=== PATIENT | male | born 1945 | race Caucasian/White ===

== ENCOUNTER 2018-12-04 18:06 | Emergency (ER) | payer MEDICARE, BC ==
--- OUTSIDE RECORDS SUMMARY | 2018-12-04 18:12 | XMS REPORT | Continuity of Care Document ---
:1945 External Reference #:[id number] Author Name Enrique Vuong M.D. Address [address] [facility] [address] [place] [address] Care Team Providers Name Role Phone HCP given Primary Care Physician Unavailable Payers Date Identification Numbers Payment Provider Subscriber Effective: 2009 Policy Number: [id number] [facility] Hamzah Munoz PayID: [id number] [address] [place] [address] Policy Number: [id number] Parish Hamzah Munoz PayID: [id number] [address] [place] [address] Problems Active Problems Provider Date Disorder of lipid metabolism Enrique Vuong M.D. Onset: 08/02/2005 Gastroesophageal reflux disease Enrique Vuong M.D. Onset: 10/25/2010 Family History Date Family Member(s) Observation Comments General Obesity 2 sibs Father Heart Disease Father due to NM () - AGE 60 Father Heart disease. Birthdate 1911. due to NM age 60. Mother Obesity Mother due to NM () - AGE 86 Mother Heart Disease Mother Obesity, heart disease. Birthdate [birth year]. due to NM age 86. Number of Children None Number of Siblings Siblings: 3 (2 brothers, 1 sister) First Brother NM in his early 60s Second Brother HIV Onset: (07/2018) First Sister Cancer breast, liver, bone (age 72 Years) (Hamzah is unsure of primary; she is not pursuing any Tx) First Sister Michelle. Birthdate [birth year]. Social History Type Date Description Comments Sex Unknown Marital Status Patient is (2010) General Highest level of education completed is post grad. 1995. 2000. The home is smoke free. Not currently working. Last date worked: 2000. 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 No history of drug abuse.Spends pad[place] in [place] Tobacco Use Reviewed: Never Smoked Cigarettes 11/17/17 Smoking Status Reviewed: Never Smoked Cigarettes 11/17/17 ETOH Use 11/12/2015 Currently consumes 3-4 beers 1-2x/wk alcohol Recreational Drug Use Never Used Drugs Exercise Type/Frequency Exercises sporadically Current Sexual Hx The patient is currently sexually active. Does not currently use any method of control. First intercourse was at age 17. Sexual preference is women. Allergies, Adverse Reactions, Alerts Active Allergies Reaction Severity Comments Date NKDA 11/08/2014 Inactive Allergies Ivermectin 10/27/2012 NKDA 07/31/2003 Medications Active Medications SIG Qnty Indications Ordering Provider Date Fish Oil one po daily Unknown 11/13/2016 B-Complex 1 po daily Unknown 10/28/2013 Calcium/Magnesium/Zinc 1 by mouth Unknown 10/26/2012 every day Tablets Multivitamin 1 po qd 0tabs Unknown 08/01/2005 Tablets History Medications Fluticasone 2 sprays into each 16units J31.0 Yevgeniy, 11/14/2016 - Propionate nostril once daily Jazz Nunez 11/16/2017 50mcg/Act for nasal Suspension congestion and cough Famotidine Take One Tablet By 90tabs K21.Rohit Vuong, 11/12/2015 - 40mg Mouth Every Jazz Nunez 04/11/2018 Tablets Evening (Preferably 10 To 30 Minutes Before Supper) For Acid Reflux (This Replaces Pantoprazol Zostavax administer 1 dose 1units Yevgeniy, 04/21/2014 - Jazz Nunez 04/21/2014 29485Tvj/0.65ML Solution Rec Luxiq Apply Topically as 100units 698.9 Yevgeniy, 02/28/2013 - 0.12% Foam Directed 2 Times A Jazz Nunez 10/30/2013 Day To Scalp Stop After Two Weeks; If It Works Well But Symptoms Return May Restart It Pantoprazole Sodium Take One Tablet By 90tabs K21.9 Yevgeniy, 10/25/2010 - Mouth Every Day as Jazz Nunez 12/25/[address] Navarrete For Acid Reflux And Cough R05 Triamcinolone apply to affected 45gm 704.8 Marianelashyanne, 10/16/2010 - Acetonide areas on chest bid Jazz Nunez 10/20/2012 0.5% Cream prn Cipro 1 po bid as needed 12tabs V65.49 Silshyanne, 05/14/2009 - 500mg Tablets for travellers Jazz Nunez 10/24/2009 diarrhea, for 1-3 days as directed Malarone 1 po qd starting 42tabs V65.49 Silcomohit, 05/14/2009 - 250-100mg 1-2 days before Jazz Nunez 10/24/2009 Tablets arrival into malaria endemic region, continue for 1 week after leaving [facility] 1 po qod for 4 4caps V65.49 Silcomohit, 05/14/2009 - Vaccine doses; keep Jazz Nunez 05/21/[address] refrigerated Pantoprazole Sodium 1 po qd for acid 90tabs 530.81 Yevgeniy, 10/13/2008 - reflux Jazz Nunez 10/23/[address] Diaz.2 Nexium 1 po qd for acid 90caps 530.81 Enrique Vuong, 10/12/2008 - 40mg Capsules reflux Melony.Arash 10/13/2008 DR Block 1 po qd for 150tabs Enrique Vuong, 05/26/2006 - 250mg;100 mg malaria Melony.DArianna 11/22/2006 Tablets prevention, starting 1-2 days before entry into [place]; stop 1 week after leaving malarial region Calcium 2 po qd Unknown 08/01/2005 - 10/26/2012 Magnesium & Zinc 1 qd Unknown 08/01/2005 - 10/26/2012 Injection Glucosamine 2 qd sylvia 07/31/2003 - 10/15/2010 Zithromax Z-Malvin take as directed sylvia 07/31/2003 - 250mg 2003 Tablets #one pack Albuterol Mdi 2 puffs q 4 hrs 1units sylvia 07/31/2003 - prn for SOB 2003 90mcg/Dose Aerosol Saw Deric 3 qd Unknown - 01/10/2009 Vit E 1 PO qd Unknown - 400Iu 08/01/2005 Nasonex 2 sprays to both 1bottle Unknown - 50mcg/Act nostrils once 10/24/2009 Suspension daily Immunizations CPT Code Status Date Vaccine Lot # [id number] Given 04/13/2018 Shingrix Zoster (Shingles) Vaccine (HZV) Recomb,Subnit,Adjuvanted 13253 Given 03/29/2018 Influenza Vaccine Split Virus Preservative Free Im Use 59196 Given 02/10/2018 Shingrix Zoster (Shingles) Vaccine (HZV) [id number] Recomb,Subnit,Adjuvanted 36865 Given 04/17/2015 Prevnar 13 12752 Given 04/17/2015 Flu, Split Virus 3Yrs 36427 Given 04/21/2014 Zostavax 32996 Given 04/20/2014 Flu, Split Virus 3Yrs 67303 Given 04/10/2012 Flu, Split Virus 3Yrs 99334 Given 10/27/2011 Adacel or Boostrix, TDaP [id number] 72441 Given 10/24/2009 Pneumococcal Immunization [id number] 80157 Given 05/24/2009 Flu, Split Virus 3Yrs [id number] 92475 Given 05/14/2009 Hep A, Adult [id number] 73879 Given 10/11/2008 Zostavax [id number] 57228 Given 05/14/2002 Hep A, Adult 83431 Given 03/07/2002 Hep A, Adult 04928 Given 06/22/2001 Hepatitis B Immunization 36133 Given 06/22/2001 Rabies Immunization 47909 Given 06/22/2001 Td Immunization 83925 Given 06/22/2001 Flu, Split Virus 3Yrs Vital Signs Date Vital Result Comment 11/19/2018 9:55am BP Systolic 136 mmHg BP Diastolic 80 mmHg Height 64.50 inches 5'4.50" Weight 173.50 lb BMI (Body Mass Index) 29.3 kg/m2 04/12/2018 12:07pm BP Systolic 138 mmHg BP Diastolic 78 mmHg Weight 178.50 lb 11/17/2017 9:21am BP Systolic 118 mmHg BP Diastolic 78 mmHg BP Systolic Recheck 130 mmHg R arm sitting BP Diastolic Recheck 78 mmHg R arm sitting Heart Rate 58 /min reg Respiratory Rate 12 /min not laboured Height 64.5 inches 5'4.50" Weight 172.00 lb BMI (Body Mass Index) 29.1 kg/m2 11/14/2016 10:06am BP Systolic 132 mmHg BP Diastolic 78 mmHg Height 65.5 inches 5'5.50" with sneakers Weight 173.00 lb with sneakers BMI (Body Mass Index) 28.3 kg/m2 12/26/2015 8:30am BP Systolic 128 mmHg pt machine 130/75 BP Diastolic 66 mmHg pt machine 130/75 BP Systolic Recheck 126 mmHg 127/73 w/ his cuff BP Diastolic Recheck 68 mmHg 127/73 w/ his cuff Weight 168.00 lb 11/12/2015 9:43am BP Systolic 136 mmHg BP Diastolic 80 mmHg BP Systolic Recheck 166 mmHg R arm sitting BP Diastolic Recheck 88 mmHg R arm sitting Heart Rate 56 /min reg Respiratory Rate 12 /min not laboured Height 64.50 inches 5'4.50" Weight 167.00 lb w/shoes BMI (Body Mass Index) 28.2 kg/m2 11/08/2014 8:33am BP Systolic 144 mmHg BP Diastolic 80 mmHg BP Systolic Recheck 166 mmHg R arm sitting BP Diastolic Recheck 94 mmHg R arm sitting Heart Rate 52 /min reg Respiratory Rate 12 /min not laboured Height 64.50 inches 5'4.50" Weight 171.00 lb BMI (Body Mass Index) 28.9 kg/m2 BP Systolic Lying Down Resting Right Arm 168 mmHg BP Diastolic Lying Down Resting Right Arm 94 mmHg 10/31/2013 9:55am BP Systolic 144 mmHg BP Diastolic 88 mmHg BP Systolic Recheck 156 mmHg R arm sitting BP Diastolic Recheck 88 mmHg R arm sitting Height 64.25 inches 5'4.25" Weight 169.00 lb BMI (Body Mass Index) 28.8 kg/m2 02/28/2013 1:54pm BP Systolic 124 mmHg BP Diastolic 70 mmHg Weight 175.00 lb 10/27/2012 8:39am BP Systolic 138 mmHg BP Diastolic 86 mmHg Height 65 inches 5'5" Weight 177.00 lb BMI (Body Mass Index) 29.5 kg/m2 10/27/2011 9:05am BP Systolic 120 mmHg BP Diastolic 76 mmHg Height 64.50 inches 5'4.50" Weight 174.00 lb BMI (Body Mass Index) 29.4 kg/m2 Last Menstrual Period 0 01/08/2011 1:37pm BP Systolic 116 mmHg BP Diastolic 72 mmHg Heart Rate 68 /min reg Respiratory Rate 12 /min not laboured Weight 173.00 lb 11/27/2010 11:44am BP Systolic 118 mmHg BP Diastolic 70 mmHg 10/25/2010 9:05am BP Systolic 120 mmHg BP Diastolic 72 mmHg Heart Rate 68 /min reg Respiratory Rate 12 /min not laboured Height 64.50 inches 5'4.50"pt had height checked last week Weight 169.00 lb BMI (Body Mass Index) 28.6 kg/m2 Last Menstrual Period 0 10/16/2010 11:10am BP Systolic 126 mmHg BP Diastolic 80 mmHg Height 64.50 inches 5'4.50" Weight 173.00 lb BMI (Body Mass Index) 29.2 kg/m2 10/24/2009 2:08pm BP Systolic 122 mmHg BP Diastolic 84 mmHg Heart Rate 64 /min reg Respiratory Rate 16 /min not laboured Height 64.5 inches 5'4.50" Weight 172.50 lb 166.7 home BMI (Body Mass Index) 29.1 kg/m2 05/14/2009 3:16pm BP Systolic 122 mmHg BP Diastolic 80 mmHg Weight 173.00 lb 01/29/2009 9:27am BP Systolic 118 mmHg BP Diastolic 74 mmHg Weight 175.00 lb Last Menstrual Period 0 01/10/2009 9:39am BP Systolic 116 mmHg BP Diastolic 70 mmHg Weight 177.00 lb w/boots 10/11/2008 11:51am BP Systolic 124 mmHg BP Diastolic 78 mmHg Height 65 inches 5'5" Weight 173.00 lb BMI (Body Mass Index) 28.8 kg/m2 08/01/2005 9:52am BP Systolic 120 mmHg BP Diastolic 74 mmHg Height 65.5 inches 5'5.50" Weight 178.00 lb BMI (Body Mass Index) 29.2 kg/m2 2003 3:05pm Weight 178.00 lb 07/31/2003 10:21am BP Systolic 122 mmHg BP Diastolic 70 mmHg Weight 180.00 lb W/Boots Results Test Date Facility Test Result H/L Range Note Lipid Profile 11/12/2015 [facility] Triglycerides 103 mg/dL N 1 (Trig/Chol/HDL) [phone] Cholesterol 159 mg/dL N 2 HDL Cholesterol 34.4 mg/dL N 3 LDL Cholesterol 104 mg/dL N 4 Urine Micro Inhouse 11/08/2014 [facility] House [facility] WBC - Ua RBC - Ua Casts - Ua Epi - Ua Other 0-1 crystals Ua Glucose - Ua Bilirubin - Ua Ketones - Ua Specific Keene 1.010 Ua Blood - Ua PH 6.0 Ua Protein - Ua Urobilinogen - Ua Nitrite - Ua Leukocytes - HIV 1/2 AB 11/08/2014 [facility] HIV 1 2 Antibody Nonreactive N Nonreactive 5 Evaluation [phone] Lipid Profile 11/08/2014 [facility] Triglycerides 106 mg/dL N 6 (Trig/Chol/HDL [phone] ) Cholesterol 177 mg/dL N 7 HDL Cholesterol 35.9 mg/dL N 8 LDL Cholesterol 120 mg/dL N 9 CBC Auto Diff 11/08/2014 [facility] White Blood Count 6.3 10^3/uL N 4.8-10.8 [phone] Red Blood Count 4.90 10^6/uL N 4.0-5.4 Hemoglobin 15.9 g/dL N 14.0-18.0 Hematocrit 48 % N 42-52 Mean Corpuscular Volume 98 fL High 80-94 Mean Corpuscular Hemoglobin 32 pg High 27-31 Mean Corpuscular HGB Conc 33 g/dL N 31-36 Red Cell Distribution Width 13 % N 10.5-15 Platelet Count 171 10^3/uL N 150-450 Mean Platelet Volume 10 um3 N 7.4-10.4 Abs Neutrophils 3.6 10^3/uL N 1.5-7.7 Abs Lymphocytes 1.9 10^3/uL N 1.0-4.8 Abs Monocytes 0.6 10^3/uL N 0-0.8 Abs Eosinophils 0.1 10^3/uL N 0-0.6 Abs Basophils 0 10^3/uL N 0-0.2 Abs Nucleated RBC 0 10^3/uL N Granulocyte % 57.6 % N 38-83 Lymphocyte % 30.9 % N 25-47 Monocyte % 8.9 % N 1-9 Eosinophil % 1.9 % N 0-6 Basophil % 0.7 % N 0-2 Nucleated Red Blood Cells % 0 N Basic Metabolic Panel 11/08/2014 [facility] Sodium 137 mmol/L N 133- 145 [phone] Potassium 4.1 mmol/L N 3.5-5.0 Chloride 104 mmol/L N 101-111 Co2 Carbon Dioxide 27 mmol/L N 22-32 Anion Gap 6 mmol/L N 2-11 Glucose 84 mg/dL N 70-100 Blood Urea Nitrogen 14 mg/dL N 6-24 Creatinine 0.96 mg/dL N 0.67-1.17 BUN/Creatinine Ratio 14.6 N 8-20 Calcium 9.2 mg/dL N 8.6-10.3 Egfr Non- 77.4 N >60 Egfr 99.6 N >60 10 Laboratory test 11/08/2014 [facility] Uric Acid 6.1 mg/dL N 4.4-7.6 11 finding [phone] Lipid Profile 04/17/2014 [facility] Triglycerides 167 mg/dL N 12, 13 (Trig/Chol/HDL) [phone] Cholesterol 173 mg/dL N 14 HDL Cholesterol 32.1 mg/dL N 15 LDL Cholesterol 108 mg/dL N 16 HIV 1/2 AB 10/31/2013 [facility] HIV 1 2 Antibody Nonreactive Nonreactive 17 Evaluation [phone] Lipid Profile 10/31/2013 [facility] Triglycerides 154 mg/dL 18 (Trig/Chol/HD [phone]) Cholesterol 198 mg/dL 19 HDL Cholesterol 33.7 mg/dL 20 LDL Cholesterol 134 mg/dL 21 Laboratory test 10/31/2013 [facility] Alt 16 U/L 7-52 finding [phone] Surgical 10/29/2012 [facility] S RUN DATE: 22 Pathology [phone] 11/01/ <SEE NOTE> RPR 10/27/2012 [facility] Syphilis IgG Nonreactive Nonreactive 23 [phone] RPR TNP Nonreactive RPR Titer TNP Pediatric/Maternal NO GC/Chlamydia 10/27/2012 [facility] GC/Chlamydia NEGATIVE 24 Amplified Rna [phone] Rna HIV 1/2 AB 10/27/2012 [facility] HIV 1 2 Nonreactive Nonreactive 25 Evaluation [phone] Antibody Lipid Profile 10/27/2012 [facility] Triglycerides 151 mg/dL 40-200 (Trig/Chol/HDL [phone] ) Cholesterol 204 mg/dL High Less than 200 HDL Cholesterol 36 mg/dL Low 40-60 26 Cholesterol/HDL Ratio 5.7 Average High 1-4.44 LDL Cholesterol 137.8 mg/dL High Less Than 100 27 Laboratory 10/27/2012 [facility] Hepatitis C Nonreactive Nonreactive 28 test finding [phone] Antibody Laboratory 10/27/2012 [facility] O P: NEGATIVE 29 test finding [phone] Giardia/Cryptos por Screen Laboratory 10/24/2009 [facility] PSA Screening 1.10 NG/ML 0-4 30 test finding [phone] Lipid Profile 10/11/2008 [facility] Triglyceride 131 mg/dL 40-200 (Trig/Chol/HDL [phone] ) Cholesterol 207 mg/dL High Less Than 200 31 High Density Lipoprotein 35 mg/dL Low 40-60 32 Cholesterol/HDL Ratio 5.91 AVERAGE High 1-4.97 Low Density Lipoprotein 146 mg/dL High Less Than 100 33 Laboratory test 10/11/2008 [facility] PSA Screening 0.99 NG/ML 0-4 34 finding [phone] Lipid Profile 08/01/2005 [facility] Cholesterol/HDL 5.97 AVERAGE High 1-4.97 35 (Trig/Chol/HDL) [phone] Ratio Cholesterol 197 mg/dL Less Than 200 36 Triglyceride 134 mg/dL 40-200 High Density Lipoprotein 33 mg/dL Low 40-60 37 Low Density Lipoprotein 137 mg/dL High Less Than 100 38 Laboratory test finding 08/01/2005 [facility] PSA Screening 0.9 NG/ML 0-4 39 [phone] 1 Desirable <150 Borderline high 150-199 High 200-499 Very High >500 2 Desirable <200 Borderline high 200-239 High >239 3 Low <40 Desirable: 40-60 High: >60 4 Desirable: <100 mg/dL Near Optimal: 100-129 mg/dL Borderline High: 130-159 mg/dL High: 160-189 mg/dL Very High: >189 mg/dL 5 It is recognized that currently available assays for the detection of antibodies to HIV-1 and/or HIV-2 may not detect all infected individuals. HIV antibodies may be undetectable in some stages of the infection and in some clinical conditions. The performance of this assay has not been established for populations of infants or children. Assayed by Chemiluminescence Microparticle Immunoassay on the Siemens Advia Centaur CP. Values obtained with different methods or kits cannot be used interchangeably.The diagnostic specificity of the ADVIA Centaur 1/O/2 Enhanced assay in the low risk population was 99.90% ([phone]/[phone]) with a 95% confidence interval of 99.78 to 99.96%. 6 Desirable <150 Borderline high 150-199 High 200-499 Very High >500 7 Desirable <200 Borderline high 200-239 High >239 8 Low <40 Desirable: 40-60 High: >60 9 Desirable: <100 mg/dL Near Optimal: 100-129 mg/dL Borderline High: 130-159 mg/dL High: 160-189 mg/dL Very High: >189 mg/dL 10 Because ethnic data is not always readily available, this report includes an eGFR for both -Americans and non- Americans. The National Kidney Disease Education Program (NKDEP) does not endorse the use of the MDRD equation for patients that are not between the ages of 18 and 70, are , have extremes of body size, muscle mass, or nutritional status, or are non- or non-. According to the National Kidney Foundation, irrespective of diagnosis, the stage of the disease is based on the level of kidney function: Stage Description GFR(mL/min/1.73 m(2)) 1 Kidney damage with normal or decreased GFR 90 2 Kidney damage with mild decrease in GFR 60-89 3 Moderate decrease in GFR 30-59 4 Severe decrease in GFR 15-29 5 Kidney failure <15 (or dialysis) 11 FASTING 12 HOUR 12 FASTING 12 HOUR 13 Desirable <150 Borderline high 150-199 High 200-499 Very High >500 14 Desirable <200 Borderline high 200-239 High >239 15 Low <40 Desirable: 40-60 High: >60 16 Desirable <100 Near Optimal 100-129 Borderline high 130-159 High 160-189 Very High >189 17 It is recognized that currently available assays for the detection of antibodies to HIV-1 and/or HIV-2 may not detect all infected individuals. HIV antibodies may be undetectable in some stages of the infection and in some clinical conditions. The performance of this assay has not been established for populations of infants or children. Assayed by Chemiluminescence Microparticle Immunoassay on the Siemens Advia Centaur CP. Values obtained with different methods or kits cannot be used interchangeably.The diagnostic specificity of the ADVIA Centaur 1/O/2 Enhanced assay in the low risk population was 99.90% (6052/6058) with a 95% confidence interval of 99.78 to 99.96%. 18 Desirable <150 Borderline high 150-199 High 200-499 Very High >500 19 Desirable <200 Borderline high 200-239 High >239 20 Low <40 Desirable: 40-60 High: >60 21 Desirable <100 Near Optimal 100-129 Borderline high 130-159 High 160-189 Very High >189 22 RUN DATE: 11/01/12 [facility] LAB LIVE PAGE 1 RUN TIME: [address] [place] [address] Specimen Inquiry Name: HAMZAH MUNOZ : [address]: Dennys Tilley MD Acct: [id number] Unit: [id number] AGE: 67 Location: [facility] Re10/29/12 SEX: M Status: REG REF SPEC: [id number] PAYAM: 10/29/12- SUBM DR: Dennys Tilley MD REQ: [id number] RECD: 10/29/121158 STATUS: SHAWANDA OCHOA DR: Enrique Vuong MD _ ORDERED: LEVEL IV FINAL DIAGNOSIS Colon, cecum, biopsies: A. Large intestinal mucosa with acute superficial inflammation. B. Focal architectural disorder. C. No cryptitis or crypt abscesses, granulomas, or dysplasia identified. COMMENTS: The findings are nonspecific and may be related to a minor acute insult. CLINICAL HISTORY Routine screening colonoscopy POST-OPERATIVE DIAGNOSIS Colonoscopy to terminal ileum - normal ileum, superficial ulcer adjacent to appy orifice, biopsied, ileocecal valve normal GROSS DESCRIPTION The specimen is received in formalin labeled Hamzah Munoz, Cecal Biopsies and consists of multiple, murphy, soft tissue fragments measuring 1.0 x 0.4 x 0.2 cm. Submitted entirely, one cassette. Signed (signature on file) Dimitry Choe MD 1225 END OF REPORT * ML=Testing performed at Main Lab DEPARTMENT OF PATHOLOGY, [facility] [employer] [place], [place] [address] Dimitry Choe M.D. Director [facility] Permit #[id number] Warning: A positive result is not useful for establishing a diagnosis of syphilis. In most situations, such a result may reflect a prior treated infection; a negative result can exclude a diagnosis of syphilis except for incubating or early primary disease. 24 RUN DATE: 10/29/12 [facility] LAB LIVE PAGE 1 RUN TIME: 1405 [facility] [employer] [place], [place] [address] Specimen Inquiry Name: HAMZAH MUNOZ : [address]: Enrique Vuong MD Acct: [id number] Unit: [id number] AGE: 67 Location: [facility] Re10/27/12 SEX: M Status: REG REF SPEC: [id number] PAYAM: 10/27/[address]: Enrique Vuong MD REQ: [id number] RECD: 10/27/12 STATUS: COMP _ SOURCE: URINE SPDESC: ORDERED: GC/Chlam RNA QUERIES: [facility] Number [id number] Procedure Result Verified Site Chlamydia Trachomatis RNA Final 10/29/12- 1404 ML NEGATIVE for Chlamydia trachomatis rRNA GC (N. gonorrhoeae) RNA Final 10/29/12- 1404 ML NEGATIVE for Neisseria gonorrhoeae rRNA A negative result does not preclude the presence of a C. trachomatis or N. gonorrhoeae infection because results are dependent on adequate specimen collection, absence of inhibitors, and sufficient rRNA to be detected. Test results may be affected by improper specimen collection, improper storage, technical error, or specimen mixup. Limitations of the Procedure: The Aptima Combo 2 Assay is not intended for the evaluation of suspected sexual abuse or for other medico-legal indications. For those patients for whom a false positive result may have adverse psychosocial impact, the [facility] recommends retesting by a method using an alternate technology. Therapeutic failure or success cannot be determined with the Aptima Combo 2 Assay since nucleic acid may persist following appropriate antimicrobial therapy. Results from the Aptima Combo 2 Assay should be interpreted in conjunction with other laboratory and clinical data available to the clinican. CONTINUED ON NEXT PAGE * ML=Testing performed at Main Lab DEPARTMENT OF PATHOLOGY, [facility] [employer] [place], [place] [address] Dimitry Choe M.D. Director [facility] Permit #[id number] RUN DATE: 10/29/12 [facility] LAB LIVE PAGE 2 RUN TIME: 1405 [facility] [employer] [place], [place] [address] Specimen Inquiry Patient: ZIARobertHAMZAH [id number] (Continued) Specimen: [id number] Collected: 10/27/12 Received: 10/27/12 (Continued) Procedure Result Verified Site GC (N. gonorrhoeae) RNA Final (continued) 10/29/121403 Performance characteristics for detecting C. trachomatis and N. gonorrhoeae are derived from high prevalence populations. Positive results in low prevalence populations should be interpreted carefully with the understanding that the likelihood of a false positive may be higher than a true positive. END OF REPORT * ML=Testing performed at Main Lab DEPARTMENT OF PATHOLOGY, [address] [place] [address] Dimitry Choe M.D. Director [facility] Permit #[id number] 25 It is recognized that currently available assays for the detection of antibodies to HIV-1 and/or HIV-2 may not detect all infected individuals. HIV antibodies may be undetectable in some stages of the infection and in some clinical conditions. The performance of this assay has not been established for populations of infants or children. Assayed by Chemiluminescence Microparticle Immunoassay on the Siemens Advia Centaur CP. Values obtained with different methods or kits cannot be used interchangeably.The diagnostic specificity of the ADVIA Centaur 1/O/2 Enhanced assay in the low risk population was 99.90% (6052/6058) with a 95% confidence interval of 99.78 to 99.96%. 26 HDL Interpretation: Undesirable: High Risk: Less than 40 MG/DL Desirable: Low Risk: Greater than 60 MG/DL 27 LDL Interpretation: Low Risk Optimal Level: LDL Less than 100 MG/DL Near or Above Optimal: LDL 100-129 MG/DL Borderline High Risk: LDL 130-159 MG/DL High Risk: LDL 160-189 MG/DL Very High Risk: LDL Greater than 189 MG/DL 28 NO 29 RUN DATE: 10/29/12 [facility] LAB LIVE PAGE 1 RUN TIME: [address] [place] [address] Specimen Inquiry Name: ZARINAHAMZAH Nia : [address]: Enrique Vuong MD Acct: [id number] Unit: [id number] AGE: 67 Location: [facility] Re10/27/12 SEX: M Status: REG REF SPEC: [id number] PAYAM: 10/27/12-[address] [facility] [address]: Enrique Vuong MD REQ: [id number] RECD: 10/27/12 STATUS: COMP _ SOURCE: STOOL [facility]: ORDERED: O P: Giar/Crypt QUERIES: [facility] Number [id number] Procedure Result Verified Site O P: Giardia/Cryptospor Screen Final 10/29/12- 2843 ML Cryptosporidium Antigen Negative by Immunoassay Giardia Antigen Negative by Immunoassay Giardia and cryptosporidium antigen testing performed by immunoassay. If patient is immunocompromised or has traveled to or is from a developing country, a full ova and parasite exam with microscopic (OPMIC) is recommended. All samples will be held one month in case full ova and parasite testing is requested. Contact the Microbiology Department at [phone]. TEST LIMITATIONS: As with all diagnostic procedures, the results obtained should be used in conjunction with other clinical information available the physician. Negative results can occur in samples containing antigen below lower limits of detection of the assay. The use of colonic washes, aspirates or other diluted sample types has not been established and could affect the performance of the assay. Stool samples contaminated with an oily or particulate base (eg. Barium, mineral oil etc.) could interfere with the test and are not recommended. END OF REPORT * ML=Testing performed at Main Lab DEPARTMENT OF PATHOLOGY, [address] [place] [address] Dimitry Choe M.D. Director [facility] Permit #[id number] 30 * SERUM LEVELS OF PSA MEASURED USING THE [employer] ACCESS HYBRITECH IMMUNOASSAY SHOULD NOT BE INTERPRETED ABSOLUTE EVIDENCE OF THE PRESENCE OR ABSENCE OF DISEASE. THE PSA VALUE SHOULD BE USED IN CONJUNCTION WITH OTHER PERTINENT CLINICAL DIAGNOSTIC PROCEDURES. 31 CHOLESTEROL INTERPRETATION: Desirable: Less than 200 MG/DL Borderline-High Risk: 200-239 MG/DL High-Risk: 240 MG/DL and over 32 HDL INTERPRETATION: Undesirable: High Risk: Less than 40 MG/DL Desirable: Low Risk: Greater than 60 MG/DL 33 LDL INTERPRETATION: Low Risk Optimal Level: LDL Less than 100 MG/DL Near or Above Optimal: LDL 100-129 MG/DL Borderline High Risk: LDL 130-159 MG/DL High Risk: LDL 160-189 MG/DL Very High Risk: LDL Greater than 189 MG/DL 34 * SERUM LEVELS OF PSA MEASURED USING THE [employer] ACCESS HYBRITECH IMMUNOASSAY SHOULD NOT BE INTERPRETED ABSOLUTE EVIDENCE OF THE PRESENCE OR ABSENCE OF DISEASE. THE PSA VALUE SHOULD BE USED IN CONJUNCTION WITH OTHER PERTINENT CLINICAL DIAGNOSTIC PROCEDURES. 35 FASTING 36 Classification: Desirable . 37 Classification: Low . 38 CALCULATED LDL APPROXIMATES THE VALUE OF A DIRECT LDL MEASUREMENT. Classification: Borderline High . 39 * SERUM LEVELS OF PSA MEASURED USING THE [employer] ACCESS HYBRITECH IMMUNOASSAY SHOULD NOT BE INTERPRETED ABSOLUTE EVIDENCE OF THE PRESENCE OR ABSENCE OF DISEASE. THE PSA VALUE SHOULD BE USED IN CONJUNCTION WITH OTHER PERTINENT CLINICAL DIAGNOSTIC PROCEDURES. Procedures Date Code Description Status 11/19/2018 78842 Bronchospasm Evaluation Pre & Post Completed 11/19/2018 18456 Destruction Premalignant Skin Lesions Completed 04/12/2018 28699 Destruction Premalignant Skin Lesions, 2-14,Ea Completed 04/12/2018 74241 Destruction Premalignant Skin Lesions Completed 11/14/2016 03737 Remove Impact Cerumen Irrigation/Lavage Unilateral Completed 11/12/2015 37880 Destruction Premalignant Skin Lesions Completed 11/08/2014 00396 Electrocardiogram Complete Completed 11/08/2014 23903 Remove Impact Cerumen Requiring Instrument, Unilateral Completed 10/31/2013 23451 Destruction Premalignant Skin Lesions Completed 10/27/2012 31153 Destruction Premalignant Skin Lesions Completed 10/20/2012 67746058 Colonoscopy Completed 10/27/2011 62195 Destruction Premalignant Skin Lesions, 2-14,Ea Completed 10/27/2011 81040 Destruction Premalignant Skin Lesions Completed 10/16/2010 15047 Destruction Premalignant Skin Lesions Completed 08/24/2009 0 Payment Completed 01/29/2009 25383 X-Ray Chest Two Views Completed 10/11/2008 01173 Remove Impact Cerumen Requiring Instrument, Unilateral Completed Encounters Type Date Location Provider Dx Diagnosis Office Visit 11/19/2018 Main Office Enrique Vuong Z00.01 Encounter for 9:45a [facility] exam w abnormal findings K21.9 Gastro-esophageal reflux disease without esophagitis R05 Cough L57.0 Actinic keratosis R73.01 Impaired fasting glucose Z12.5 Encounter for screening for malignant neoplasm of prostate Z68.29 Body mass index (BMI) 29.0-29.9, adult Office Visit 04/12/2018 11:45a Main Office Enrique Vuong L57.0 Actinic keratosis M.D. R10.31 Right lower quadrant pain Z85.828 Personal history of other malignant neoplasm of skin Office Visit 11/14/2016 9:45a Main Office Enrique Vuong Z00.01 [facility]counter [facility] w abnormal findings K21.9 Gastro-esophageal reflux disease without esophagitis R05 Cough M25.512 Pain in left shoulder H61.92 Disorder of left external ear, unspecified H61.22 Impacted cerumen, left ear J31.0 Chronic rhinitis Z71.89 Other specified counseling L57.0 Actinic keratosis Office Visit 12/26/2015 8:30a Main Office Yevgeniy R03.0 Elevated [facility] blood-pressure reading, w/o diagnosis of htn K21.9 Gastro-esophageal reflux disease without esophagitis Office Visit 11/12/2015 9:45a Main Office Enrique Vuong Z00.01 Encounter for [facility] exam w abnormal findings K21.9 Gastro-esophageal reflux disease without esophagitis R03.0 Elevated blood-pressure reading, w/o diagnosis of htn M25.512 Pain in left shoulder M67.441 Ganglion, right hand L57.0 Actinic keratosis Z13.220 Encounter for screening for lipoid disorders Office Visit 11/08/2014 8:30a Main Office Enrique Vuong, V70.0 Examination General M.D. Medical Routine AT Health Care Facility V75.9 Screening Examination Infectious Disease Unspec 272.8 Lipoid Metabolism Disorders Other 401.1 Hypertension Benign 380.4 Impacted Cerumen 553.1 Hernia Umbilical 702.0 Actinic Keratosis Office Visit 10/31/2013 9:45a Main Office Enrique Vuong, V70.0 Examination General M.D. Medical Routine AT Health Care Facility 530.81 Esophageal Reflux 698.9 Pruritic Disorder Unspec 796.2 Blood Pressure Reading Elevated W/O Hypertension 702.0 Actinic Keratosis 272.8 Lipoid Metabolism Disorders Other V69.2 Sexual Behavior High Risk V76.44 Screening For Malig Sina Prostate Office Visit 02/28/2013 1:15p Main Office Enrique Vuong, 698.9 Pruritic Disorder M.D. Unspec Office Visit 10/27/2012 8:30a Main Office Enrique Vuong, V70.0 Examination General M.D. 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 V72.84 Examination Preoperative Unspec Office Visit 11/27/2010 11:30a Main Office Yevgeniy 448.1 Nevus Non- Neoplastic [facility] Nunez E906.4 Bite Nonvenomous Arthropod 922.31 Contusion Back 729.2 Neuralgia Neuritis & Radiculitis Unspec Office Visit 10/25/2010 8:55a Main Office Enrique Vuong V76.44 Screening For M.D. Malig Sina Prostate 729.2 Neuralgia Neuritis & Radiculitis Unspec 530.81 Esophageal Reflux 786.2 Cough 272.8 Lipoid Metabolism Disorders Other V70.0 Examination General Medical Routine AT Health Care Facility 373.12 Hordeolum [employer] Office Visit 10/16/2010 11:00a Main Office Enrique Vuong 216.4 Benign Neoplasm M.D. Skin Scalp & Neck 704.8 Hair & Hair Follicle Diseases Other Spec 702.0 Actinic Keratosis Office Visit 10/24/2009 2:00p Main Office Enrique Vuong V70.0 Examination General M.D. Medical Routine AT Health Care Facility 530.81 Esophageal Reflux 786.2 Cough V76.44 Screening For Malig Sina Prostate V03.82 Streptococcus Pneumoniae Vaccination Spec Other V07.2 Prophylactic Immunotherapy Office Visit 05/14/2009 3:00p Main Office Enrique Vuong V65.49 Counseling Other M.D. Spec 238.2 Neoplasm Uncertain Skin V05.3 Viral Hepatitis Vaccination & Inoculation V07.2 Prophylactic Immunotherapy Office Visit 01/29/2009 9:15a Main Office Enrique Vuong 786.50 Pain Chest M.D. Unspec 786.2 Cough 530.81 Esophageal Reflux 784.1 Throat Pain Office Visit 01/10/2009 9:30a Main Office Enrique Vuong M.D. 786.2 Cough 530.81 Esophageal Reflux 724.2 Lumbago Office Visit 10/11/2008 11:30a Main Office Enrique Vuong V70.0 Examination General M.D. Medical Routine AT Health Care Facility V76.44 Screening For Malig Sina Prostate 272.8 Lipoid Metabolism Disorders Other 530.81 Esophageal Reflux 786.2 Cough 380.4 Impacted Cerumen V05.8 Single Disease Spec Other Vaccination & Inoculation V07.2 Prophylactic Immunotherapy Office Visit 08/01/2005 9:45a Main Office Enrique Vuong, 719.41 Pain Joint M.D. Shoulder Region 715.04 Osteoarthrosis Generalized Hand 719.47 Pain Joint Ankle & Foot 723.1 Cervicalgia V77.91 Screening For Lipoid Disorders V76.44 Screening For Malig Sina Prostate 786.2 Cough 787.1 Heartburn Office Visit 2003 3:00p Main Office [email or web address] 719.44 Pain Joint Hand Office Visit 07/31/2003 10:15a Main Office [email or web address] 466.0 Bronchitis Acute 786.2 Cough Plan of Treatment Future Appointment(s):11/16/2019 8:30 am - Enrique Vuong M.D. at [facility]/19/2018 - Enrique Vuong M.D.Z00.01 Encounter for general adult medical examination with fmommytY95.9 Gastro-esophageal reflux disease without snaxieavezzH38 CoughComments:Spirometry normal. This is really a very chronic problem, previously evaluated incl by ENT and in the end felt it was related to GERD. Today's normal spirometry is reassuring. No Tx is needed. Could consider trying a PPI again if he felt Sxs were bothersome enough.L57.0 Actinic keratosisComments:AK x1 (R auricle) treated w/ LN.R73.01 Impaired fasting jkfoogcM91.5 Encounter for screening for malignant neoplasm of prostateComments: We again discussed prostate screening, reviewed latest advice from USPSTF, ACS, AUA and what underlies the recommendations. Screening declined.Z68.29 Body mass index (BMI) 29.0-29.9, adult
[2018-12-04 18:24] VITALS: BP 149/78
--- NOTE | 2018-12-04 18:35 | UC ---
Skin Complaint HPI - HPI Summary HPI Summary: 73-year-old male comes in with a chief complaint of a rash behind the right knee. First noticed it a couple of days ago. To be like a bug bite with a little red bump. Not sure what got a bug it was.. Is gotten worse now it's red and hurts quite a bit and there is more swelling. [place] a little ill today no fevers measured. No history of MRSA did not see a tick. - History of Current Complaint Chief Complaint: UCLowerExtremity Time Seen by Provider: 12/04/18 18:16 Stated Complaint: INSECT BITE LEG Pain Intensity: 2 - Allergy/Home Medications Allergies/Adverse Reactions: Allergies Allergy/AdvReac Type Severity Reaction Status Date / Time No Known Allergies Allergy Verified 12/04/18 18:25 PMH/Surg Hx/FS Hx/Imm Hx Previously Healthy: Yes - Family History Known Family History: Positive: Non-Contributory - Social History Alcohol Use: Occasionally Substance Use Type: None Smoking Status (MU): Never Smoked Tobacco Review of Systems All Other Systems Reviewed And Are Negative: Yes Constitutional: Positive: Negative Skin: Positive: Other - SEE HPI Eyes: Positive: Negative ENT: Positive: Negative Respiratory: Positive: Negative Cardiovascular: Positive: Palpitations Gastrointestinal: Positive: Negative Motor: Positive: Negative Neurovascular: Positive: Negative Musculoskeletal: Positive: Negative Neurological: Positive: Negative Psychological: Positive: Negative Is Patient Immunocompromised?: No Physical Exam Triage Information Reviewed: Yes Appearance: Well-Appearing, No Pain Distress, Well-Nourished Vital Signs: Initial Vital Signs Temp 98 F 12/04/18 18:16 Pulse 65 12/04/18 18:16 Resp 12 12/04/18 18:16 BP 149/78 12/04/18 18:16 Pulse Ox 100 12/04/18 18:16 Vital Signs Reviewed: Yes Eye Exam: Normal Eyes: Positive: Conjunctiva Clear Neck: Positive: Supple Respiratory: Positive: No respiratory distress Musculoskeletal: Positive: Strength Intact, ROM Intact Neurological: Positive: Alert, Muscle Tone Normal Psychological: Positive: Age Appropriate Behavior Skin: Positive: Other - RT POPLITEAL 6CM X3CM RAISES ERYTHEMATOUS RASH. NO STREAKING, NO FB SEEN Course/Dx - Diagnoses Provider Diagnosis: Cellulitis of right leg Discharge - Sign-Out/Discharge Documenting (check all that apply): Patient Departure All imaging exams completed and their final reports reviewed: No Studies - Discharge Plan Condition: Stable Disposition: HOME Prescriptions: DOXYcycline CAP(*) [DOXYcycline 100MG CAP(*)] 100 mg PO BID #20 cap Patient Education Materials: Cellulitis (ED) Referrals: Enrique Vuong MD [Primary Care Provider] - Additional Instructions: FOLLOW UP WITH YOUR DOCTOR IF NOT COMPLETELY IMPROVED. GO TO THE EMERGENCY DEPARTMENT IF YOUR CONDITION WORSENS; PAIN, FEVER, SPREAD OF INFECTION, YOU FEEL ILL OR ANY QUESTIONS OR CONCERNS. - Billing Disposition and Condition Condition: STABLE Disposition: Home
[2018-12-04] MEDS ORDERED: DOXYcycline CAP(*) 100 MG PO ONE (18:44)
== END 2018-12-04 19:04 | disposition home or self-care (01) ==
LOC: UCEAST 18:06
DX: L03.115 Cellulitis of right lower limb (principal)
CPT/HCPCS: 99202; A9270-GY; G0463